=== PATIENT | male | born 1980 | race Caucasian/White ===

== ENCOUNTER 2024-11-19 08:48 | Emergency (ER) | payer BC, SELFPAY ==
[2024-11-19 08:49] VITALS: BP 131/84; PULSE 53; RESP 18; TEMP 36.6; O2SAT 98; BMI 27.9
--- NOTE | 2024-11-19 09:52 | EX.ED.VIS.UR ---
HPI HPI - URI History of Present Illness Chief Complaint: Cold Sx Informant: patient Onset/Context/Timing Onset: Days Context: Gradual Onset Timing: Continuous Current Severity: Mild Maximum Severity: Mild Associated Symptoms Associated Symptoms: Positive for Nasal Congestion, Myalgias and Productive Cough (Clear sputum) Narrative Narrative: Healthy 44-year-old male prior history of testicular cancer with bilateral orchiectomy. Has had URI symptoms for more than a week. Said his brother initially had then he got it and his mom got it. He is concerned because is not getting better. He has a cough with clear productive sputum. Nasal congestion. A year or so ago he had developed a pneumonia and he wanted to make sure he did not have pneumonia at this time. Prior similar symptoms: Yes Recent Illness/Hospitalization: No ROS ROS ED ROS Narrative Cough of clear sputum. Nasal congestion. Constitutional Constitutional ED: Denies chills or fever(s) Eyes Eyes: Denies blurry vision ENT ENT ED: Denies ear pain Cardiovascular Cardiovascular: Denies chest pain Respiratory/Chest Respiratory/Chest: Reports cough and sputum; Denies dyspnea or dyspnea on exertion Gastrointestinal Gastrointestinal: Denies abdominal pain Genitourinary Genitourinary ED: Denies dysuria Musculoskeletal Musculoskeletal: Denies arthralgias Integumentary Denies abscess Neurologic Neurologic: Denies headache(s) Psychiatric Psychiatric: Denies anxiety Endocrine Endocrinology: Denies cold intolerance Hematologic/Lymphatic Hematologic/Lymphatic: Denies easy bleeding or easy bruising Allergic/Immunologic Allergic/Immunologic ED: Denies mouth swelling, tongue swelling or urticaria PFSH PFSH Home Medications ?Medication ?Instructions ?Recorded ?Last Taken ?Type azithromycin 250 mg tablet See Rx Instructions PO .COMPLEX #6 11/19/24 Unknown Rx (Zithromax Z-Nando) tabs Social History Smoking Status: Never smoker EXAM Physical Exam Narrative Exam Narrative: 44-year-old male sitting upright in bed. Vital signs are stable afebrile. Pulse ox is 98% on room air no hypoxia. He does not look septic toxic. No distress. H EENT exam pupils round react to light. Extra motions are intact. Posterior pharynx no erythema or exudate. Moist mucous membranes. TMs not visualized due to wax bilaterally. Neck nontender. No JVD. No lymphadenopathy. Lungs clear to auscultation bilaterally. Heart regular rhythm rate about 60 no murmur. Abdomen soft, nontender, nondistended normal bowel sounds without peritoneal signs. Back nontender. Moving all 4 extremities. Normal strength. Normal range of motion. No swelling. No edema. No calf tenderness. Neurologically he is awake alert. Answering questions following commands. Benign exam. Const Vital Signs: 11/19/24 08:48 11/19/24 08:49 Temperature 98 F Temperature Source Temporal Pulse Rate 53 L Respiratory Rate 18 Respiratory Effort Normal Non-Labored Respiratory Pattern Normal Blood Pressure 131/84 H Blood Pressure Mean 99 Pulse Ox 98 Oxygen Delivery Method Room Air Positive well nourished and well developed; Negative for cachectic or contractures General Appearance ED: well developed and NAD; Negative for cachectic, contractures, cyanotic, diaphoretic or pallor Nutritional Appearance: Negative for cachectic HEENT Reports moist mucous membranes normocephalic and atraumatic Throat: posterior oropharynx normal Eyes PERRL and EOMs intact bilaterally Neck no lymphadenopathy, supple, no meningeal signs and no JVD Resp normal respiratory effort and clear to auscultation bilaterally Cardio S1 normal heart sound, S2 normal heart sound and no murmurs Rate: regular rate Rhythm: regular rhythm GI non-tender, non-distended and no masses Auscultation: normoactive bowel sounds Palpation: soft; Negative for tender, guarding or mass Back/Spine no CVA tenderness and normal ROM Extremity normal to inspection and full ROM General Extremety ED: Negative for tenderness Neuro oriented x3 and CN's II-XII intact bilaterally Sensorium / Orientation: alert, oriented to person, oriented to place and oriented to time; Negative for orientation impaired, lethargic or stuporous Motor Exam: strength 5/5 throughout Psych mental status grossly normal Skin General Skin Exam: Negative for jaundice or pallor Lesions: no lesions Rashes: no rashes Trauma: Negative for abrasion MDM MDM MDM Narrative Medical decision making narrative: 44-year-old male URI suspect viral chest x-ray being obtained to evaluate for possible pneumonia. Repeat exam patient doing well at 10:12 AM patient scheduled being discharged to home. Treated as a viral syndrome. History & Record Review Discussion w/independent historian: Patient Additional record(s) reviewed:: No prior records Radiography Chest X-Ray - ED: 2 View, Read by ED Physician, Normal, Heart, Lungs, Mediastinum, Bony Structures, No Acute Disease and Chronic Changes Diagnostic Testing: Chest x-ray, 2 views, AP lateral, interpreted by myself shows no acute abnormality. Normal cardiac silhouette. Normal lung judge. No pneumonia. Discharge Plan Triage Chief Complaint: Cold Sx ED Provider: Sheldon Chambers Dx/Rx/DC Orders Clinical Impression: Viral URI Instructions: ED URI, Viral, No Abx (Adult) Prescriptions: New azithromycin [Zithromax Z-Nando] 250 mg tablet See Rx Instructions .ROUTE .COMPLEX Qty: 6 0RF Rx Instructions: For 250 mg dose pack: take 500 mg today (day 1), then 250 mg for 4 days (days 2-5) Primary Care Provider: Care Physician,No Primary Referrals: José Manuel Carrera MD [Med Staff - Computer Education Professor] - 1 Week if not improving Care Physician,No Primary [Primary Care Provider] - Activity Restrictions/Additional Instructions: Plenty of fluids and rest. Motrin and Tylenol for body aches. This should progressively improve. If in 5 days or not getting better you can start the antibiotic but this is a virus and the antibiotic will not help with. Print Language: Greek Disposition Disposition: Home, Self Care
--- NOTE | 2024-11-19 09:55 | RAD_ITS ---
PROCEDURE: CHEST PA AND LATERAL 11/19/2024 REASON FOR EXAM: COUGH One-week history of cold symptoms. TECHNIQUE: Frontal and lateral views of the chest. COMPARISON: None FINDINGS: Hardware: None Heart: The heart size is normal. Mediastinum: The mediastinal contour is unremarkable. Lungs: The lungs are clear. Bones: Degenerative changes are identified within the thoracic spine. RAD/Chest PA and Lateral IMPRESSION: NO ACUTE FINDINGS. Reading Location: [place] [id number]
== END 2024-11-19 10:26 | disposition home or self-care (01) ==
PROVIDERS: Emergency Provider Emergency Medicine; Visit Provider Emergency Medicine
DX: J06.9 Acute upper respiratory infection, unspecified (principal); Z85.47 Personal history of malignant neoplasm of testis; R05.9 Cough, unspecified; Z87.01 Personal history of pneumonia (recurrent)
CPT/HCPCS: 71046; 99282